=== PATIENT | female | born 2000 | race Caucasian/White ===

== ENCOUNTER 2021-04-17 09:36 | Emergency (ER) | payer MEDICAID, SELFPAY ==
--- NOTE | 2021-04-17 09:41 | ED.GENADULT ---
HPI - General Adult General Chief complaint: Abdominal Pain Stated complaint: Abdominal Pain/ Time Seen by Provider: 04/17/21 09:41 Source: patient Mode of arrival: ambulatory Limitations: no limitations History of Present Illness HPI narrative: 20-year-old female patient presents to the [facility] with complaints of lower abdominal pain. Patient states that she took a test 2 weeks ago and states that all three test did come back positive. Patient states she has not yet seen an OB. Patient states that her last menstrual period was March 08. Related Data Home Medications Medication Instructions Recorded Confirmed [id number] 1 pkg PO DAILY 04/17/21 04/17/21 [Daily ] Allergies Allergy/AdvReac Type Severity Reaction Status Date / Time No Known Allergies Allergy Verified 04/17/21 09:53 Review of Systems Review of Systems: CONSTITUTIONAL: Denies fever, chills, or sweats. EYES: Denies visual changes, redness, or discharge. ENT: Denies rhinorrhea, congestion, sore throat, or otalgia. CARDIOVASCULAR: Denies chest pain, palpitations, or edema. RESPIRATORY: Denies cough or dyspnea. GASTROINTESTINAL: Positive lower abdominal pain, denies nausea, vomiting, or diarrhea. GENITOURINARY: Denies dysuria or hematuria. SKIN: Denies rash or itching. MUSCULOSKELETAL: Denies back pain, joint pain, or myalgia. NEUROLOGIC: Denies headache, numbness, or weakness. PSYCHIATRIC: Denies anxiety or depression. [facility] Past Medical History Medical History (Updated 04/17/21 @ 10:11 by [place] Kaye) Comments At the time of my signature I agree with nursing past medical history, surgical, social, and family history. There is no relevant family history pertinent to the presenting complaint. Exam Narrative: GENERAL: Well-appearing, well-nourished, and in no acute distress. HEAD: Normocephalic, atraumatic. EYES: PERRLA and EOMI. ENT: Nares clear, no rhinorrhea or epistaxis. Mucous membranes moist. NECK: Supple. No lymphadenopathy CHEST: Clear to auscultation. No respiratory distress. HEART: Regular rate and rhythm. No murmur heard. Normal peripheral pulses. ABDOMEN: Soft, flat, nondistended. No guarding, rebound tenderness, or rigid. Pain to right lower quadrant on palpation. No pulsatilla masses. Bowel sounds present in all four quadrants. No organomegaly. Negative Katz?s sign. No periumbicial tenderness. No Supra public tenderness or distension. Good femoral pulses bilaterally. No hernia noted. No scars or surface trauma. EXTREMITIES: Normal range of motion. No edema. SKIN: Warm, dry, no rash. NEURO: No focal deficits. Alert and oriented x3. Course Reevaluation(s) Reevaluation #1: Reevaluated patient notified her that her urine dip looks okay and she does have a positive test here as well. Discussed with her that given her state of as well as her abdominal pain we will send her over to the ER for further evaluation. Patient has chose [facility] for further evaluation. Date: 04/17/21 Time: 10:09 Vital Signs Vital signs: Vital Signs Temperature 37.6 C 04/17/21 09:46 Pulse Rate 87 04/17/21 09:46 Respiratory Rate 18 04/17/21 09:46 Blood Pressure 135/72 04/17/21 09:46 Pulse Oximetry 100 04/17/21 09:46 Temperature 37.6 C 04/17/21 09:46 Pulse Rate 87 04/17/21 09:46 Respiratory Rate 18 04/17/21 09:46 Blood Pressure 135/72 04/17/21 09:46 Pulse Oximetry 100 04/17/21 09:46 Vital signs reviewed Transfer Transfered to: [facility] Transportation: Other (Private vehicle with friend) Transfer rationale: with lower abdominal pain Accepting physician: Dr. Garcia Transfer comments: Called and spoke with Deanna, charge nurse at [facility] and gave her report on patient that we are sending over there who is approximately 5 weeks with a last menstrual period of March 08. Complaining of
[2021-04-17 09:46] VITALS: BP 135/72; PULSE 87; RESP 18; TEMP 37.6; O2SAT 100
== END 2021-04-17 10:15 | disposition short-term general hospital (02) ==
PROVIDERS: Emergency Provider Nurse Practitioner Family
DX: O26.891 Other specified pregnancy related conditions, first trimester (principal); R10.31 Right lower quadrant pain; R10.32 Left lower quadrant pain
CPT/HCPCS: 81003; 99212; G0463